=== PATIENT | male | born 1955 | race Caucasian/White ===

== ENCOUNTER 2018-09-10 06:04 | Day surgery (SDC) | payer OTHER ==
[2018-09-09 15:34] VITALS: BMI 34.2
[~2018-09-10 06:04] MED LIST: ceFAZolin SODIUM 1 GM VIAL IVPB ONE
[2018-09-10] MEDS ORDERED: MIDAZOLAM HCL 2 MG/2 ML SINGLE DOSE VIAL ONE (07:20)
[2018-09-10] MEDS ORDERED: SUCCINYLCHOLINE CHLORIDE 200 MG/10 ML VIAL ONE (07:20)
[2018-09-10] MEDS ORDERED: PROPOFOL 20 ML ONE ×4 (07:20)
[2018-09-10] MEDS ORDERED: LIDOCAINE HCL 1%, 10 MG/ML (20ML VIAL) ONE (07:25)
[2018-09-10] MEDS ORDERED: BUPIVACAINE HCL/PF 0.5% (5MG/ML) 10 ML VIAL ONE (07:26)
[2018-09-10] MEDS ORDERED: BUPIVACAINE HCL/PF (5 MG/ML) 30 ML VIAL IJ ONE ×3 (07:33→08:26)
[2018-09-10] MEDS ORDERED: LIDOCAINE HCL 1%, 10 MG/ML (50 mL VIAL) IJ ONE ×3 (07:33→08:26)
--- NOTE | 2018-09-10 08:15 | HP ---
[facility]ellite [facility] - Chief Complaint Chief Complaint: left wrist pain History of Present Illness: left wrist pain, lacerated tendon History Source: Patient Limitations to Obtaining History: No Limitations - Past Medical History Allergies/Adverse Reactions: Allergies Allergy/AdvReac Type Severity Reaction Status Date / Time No Known Allergies Allergy Verified 09/10/18 06:29 - Current Medications Current Medications: Home Medications Medication Instructions Recorded Canagliflozin/Metformin HCl 1 each PO BID #60 tablet 05/21/17 [Invokamet 150-1,000 mg Tablet] Verapamil HCl [Verapamil ER] 0.5 mg PO BID 12/27/17 Atorvastatin Ca [Lipitor] 40 mg PO HS #30 tablet 03/07/18 Lisinopril [Prinivil] 5 mg PO DAILY #30 tablet 03/07/18 Metoprolol Tartrate [Lopressor -] 50 mg PO TID #90 tablet 03/07/18 [place]-3 Acid Ethyl Esters [Lovaza 2 cap PO BID #120 cap 03/07/18 -] Ergocalciferol [Vitamin D2] 50,000 unit PO Q7D #4 capsule 05/26/18 Glipizide [Glucotrol Xl] 2.5 mg PO DAILY 07/31/18 Silver Sulfadiazine [Silvadene] 1 applic TP BID #20 cream..g. 08/20/18 Digoxin [Lanoxin -] 0.25 mg PO DAILY #30 tablet 08/25/18 Emtricitab/Rilpiviri/Tenof Ala 1 each PO DAILY #30 tablet 08/25/18 [Odefsey Tablet] Gabapentin 600 mg PO HS #60 capsule 08/25/18 Multivitamin,Ther and Minerals 1 each PO DAILY #30 tablet 08/25/18 [Vitamin and Minerals] Olopatadine HCl [Pataday] 1 drop OU DAILY #2.5 ml 08/25/18 Oxycodone HCl/Acetaminophen 1 each PO TID PRN #80 tablet MDD 3 08/25/18 [Percocet 10-325 mg Tablet] Rivaroxaban [Xarelto -] 20 mg PO DAILY #30 tablet 08/25/18 Satellite Physical Exam - Physical Examination Vital Signs: Vital Signs Period Temp Pulse Resp BP Sys/Terry Pulse Ox Last 24 Hr 97.5 F-97.5 F 61-61 20-20 114-114/63-63 97 General Appearance: Well Nourished ENT: Clear Lung: Clear to auscultation Heart: Regular rate & rhythm Breasts: Soft Abdomen: Soft Extremities: No edema Satellite Impression/Plan - Impression/Plan Impression: left wrist pain, lacerated tendon stump Operative Procedure: excision tendon stump, left wrist Date to be Performed: 09/10/18
[2018-09-10] MEDS ORDERED: ceFAZolin SODIUM 1 GM VIAL IVPB ONE (08:25)
[2018-09-10 09:09] VITALS: TEMP 97.6
--- NOTE | 2018-09-10 09:10 | OP ---
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
--- NOTE | 2018-09-10 09:57 | OP ---
DATE OF OPERATION: 09/10/2018 PREOPERATIVE DIAGNOSIS: Left wrist tendon laceration. POSTOPERATIVE DIAGNOSIS: Left wrist tendon laceration. PROCEDURE: Excision tendon, left wrist, and tenosynovectomy. DRAINS: None. COMPLICATIONS: None. SPECIMENS: Tendon and tenosynovium, left wrist. SURGEON: Shawn Kyle MD GRAVEL MACHINE OPERATOR: None. MEDICAL TERRITORY MANAGER: Gabriel Dale CRNA ANESTHESIA: MAC anesthesia, local injection of 10 mL of 0.5% Marcaine and 1% lidocaine mixed. BLOOD LOSS: None. BLOOD GIVEN: None. FLUID REPLACEMENT: 500 mL. INDICATIONS: This patient is a 62-year-old male who sustained an accidental self-induced table-saw injury to the left forearm and wrist. He lacerated the palmaris longus tendon. A large distal stump remained. It was mobile. It was constantly irritating the forearm. We indicated him for palmaris longus tendon stump excision and tenosynovectomy. DESCRIPTION OF PROCEDURE: He was brought to the operating room, peripheral IV placed and intravenous sedation was given. IV Ancef, 2 g, was given. MAC anesthesia was induced. The left upper extremity was prepped and draped in sterile fashion. A longitudinal incision was marked out over the distal palmaris longus stump. Then, 10 mL of 0.5% Marcaine with 1% Lidocaine mix was injected in and around the surgical incision. The entire case was done under 3.8 loupe magnification. The left upper extremity was then elevated, exsanguinated with an Esmarch bandage and the tourniquet inflated to 250 mmHg. The longitudinal incision was made with a No. 15 scalpel blade. Subcutaneous hemostasis was achieved with the bipolar cautery. Dissection was done with a Littler scissors. I was able to expose the distal palmaris longus tendon. I pulled on it, did provide the function of the palmaris longus to confirm that this was the correct tendon. The distal tendon stump was swollen, larger than usual with a moderate amount of surrounding synovitis/tenosynovitis. There was no proximal stump to repair it to. I pulled on the tendon a bit proximally. Then, using a fresh No. 15 scalpel blade, cut it at the level of the volar wrist flexion crease at a much smaller diameter. I also excised surrounding tenosynovium and passed this off the field as specimen. The area was copiously irrigated and washed out. I did not see any foreign material or any other abnormalities. Closure was done with 4-0 undyed Vicryl in the deep dermal layer. Final skin reapproximation was done with a running subcuticular 4-0 Biosyn stitch. This was then washed dry and covered with Steri-Strips, 4x4s, fluffs between the fingers, Webril and Coban. The tourniquet was taken down after a total tourniquet time of 15 minutes. There were no complications during the case. The patient tolerated the procedure well. SHAWN KYLE M.D. [id number]
[2018-09-10 10:15] VITALS: BP 120/80; PULSE 80
--- NOTE | 2018-09-11 16:17 | PATH ---
Surgical Pathology Report Patient Name: ASIM SHEARER Med. Rec. #: [id number] /Age/Gender: 1955 (Age: 62) / M Account: [id number] Location: [facility] SURGICAL Taken: 09/10/2018 Received: 09/10/2018 Reported: 09/11/2018 Physicians: Shawn Taylor M.D. Specimen(s) Received LEFT WRIST TENDON Clinical History Tendon rupture Final Diagnosis LEFT WRIST TENDON, EXCISION: PORTION OF DENSE FIBROCONNECTIVE TISSUE SHOWING FIBROSIS, DEGENERATIVE CHANGE, AND CHRONIC INFLAMMATION. Electronically Signed Jef Escoto M.D. Gross Description Received in formalin labeled "left wrist tendon," is a 3.5 x 0.8 x 0.4 cm howell portion of fibrous tissue, consistent with a portion of tendon. Dry Mill Worker sections are submitted in one cassette. DL/09/10/2018 saudi/09/10/2018
== END 2018-09-10 10:15 | disposition home or self-care (01) ==
LOC: JASU-SURG 06:04
PROVIDERS: ATTEND Orthopaedic Surgery
PROC: 0LB60ZZ Excision of Left Lower Arm and Wrist Tendon, Open Approach (ICD-10-PCS; 2018-09-10)
PROC: 0LB60ZZ Excision of Left Lower Arm and Wrist Tendon, Open Approach (ICD-10-PCS; principal; 2018-09-10 08:00)
DX: S66.822A Laceration of other specified muscles, fascia and tendons at wrist and hand level, left hand, initial encounter (principal); X58.XXXA Exposure to other specified factors, initial encounter; Y93.9 Activity, unspecified; Y92.9 Unspecified place or not applicable; Y99.9 Unspecified external cause status; M65.832 Other synovitis and tenosynovitis, left forearm
CPT/HCPCS: 82962; 88304-TC

== ENCOUNTER → 2019-01-27 | Outpatient (CLI) | payer OTHER | LOC: YHH 08:47 ==

== ENCOUNTER 2019-03-04 07:29 | Day surgery (SDC) | payer OTHER ==
[2019-03-04 07:47] VITALS: BMI 34.8
--- NOTE | 2019-03-04 08:13 | HP ---
[facility] - Chief Complaint Chief Complaint: left hand pain, numbness - Past Medical History Allergies/Adverse Reactions: Allergies Allergy/AdvReac Type Severity Reaction Status Date / Time No Known Allergies Allergy Verified 09/10/18 06:29 - Current Medications Current Medications: Home Medications Medication Instructions Recorded Canagliflozin/Metformin HCl 1 each PO BID #60 tablet 05/21/17 [Invokamet 150-1,000 mg Tablet] Atorvastatin Ca [Lipitor] 40 mg PO HS #30 tablet 03/07/18 Lisinopril [Prinivil] 5 mg PO DAILY #30 tablet 03/07/18 Metoprolol Tartrate [Lopressor -] 50 mg PO TID #90 tablet 03/07/18 [place]-3 Acid Ethyl Esters [Lovaza 2 cap PO BID #120 cap 03/07/18 -] Glipizide [Glucotrol Xl] 2.5 mg PO DAILY 07/31/18 Ergocalciferol [Vitamin D2] 50,000 unit PO Q7D #4 capsule 10/21/18 Albuterol 0.083% Nebulizer Mariaelena 1 neb NEB Q6H PRN #120 vial 01/26/19 [Ventolin 0.083% Nebulizer Soln -] Nebulizer and Compressor [Comp-Air 1 each ASDIR #1 each 01/27/19 Nebulizer System] Mirtazapine [Remeron -] 15 mg PO HS #30 tablet MDD 1 02/04/19 Digoxin [Lanoxin -] 0.25 mg PO DAILY #30 tablet 02/05/19 Emtricitab/Rilpiviri/Tenof Ala 1 each PO DAILY #30 tablet 02/05/19 [Odefsey Tablet] Olopatadine HCl [Pataday] 1 drop OU DAILY #2.5 ml 02/05/19 Rivaroxaban [Xarelto -] 20 mg PO DAILY #30 tablet 02/05/19 Oxycodone HCl/Acetaminophen 1 each PO TID PRN #75 tablet MDD 3 02/20/19 [Percocet 10-325 mg Tablet] Guaifenesin/D-Methorphan Hb 10 ml PO Q4H PRN #240 ml 02/27/19 [Diabetic Tussin Dm -] Loratadine [Claritin -] 10 mg PO DAILY PRN #30 tablet 02/27/19 Verapamil HCl ER [Calan Sr -] 180 mg PO BID #60 tablet.er 03/02/19 Satellite Physical Exam - Physical Examination Vital Signs: Vital Signs Period Temp Pulse Resp BP Sys/Terry Pulse Ox Last 24 Hr 97.4 F-97.4 F 93-93 20-20 144-144/88-88 95 General Appearance: Well Nourished, Well Developed, Alert & Oriented x3 ENT: Clear Lung: Normal air movement Heart: Regular rate & rhythm Extremities: Other (left hand- + tinels, + phalens, emg + cts) Neurological: Intact, Alert, Oriented Satellite Impression/Plan - Impression/Plan Impression: left cts Operative Procedure: left ctr Date to be Performed: 03/04/19
[2019-03-04] MEDS ORDERED: oxyCODONE HCL 5 MG TABLET PO PRN (09:40)
[2019-03-04] MEDS ORDERED: ONDANSETRON 4 MG/2 ML VIAL IVPUSH PRN (09:40)
[2019-03-04] MEDS ORDERED: LACTATED RINGERS SOLUTION 1,000 ML IV SCH (09:45)
[2019-03-04] MEDS ORDERED: BUPIVACAINE HCL/PF 0.5% (5 MG/ML) 30 ML VIAL IJ ONE ×3 (10:49→11:30)
[2019-03-04] MEDS ORDERED: LIDOCAINE HCL 1%, 10 MG/ML (20ML VIAL) ONE (10:49)
[2019-03-04] MEDS ORDERED: MIDAZOLAM HCL 2 MG/2 ML SINGLE DOSE VIAL ONE (10:54)
[2019-03-04] MEDS ORDERED: ceFAZolin SODIUM 1 GM VIAL IVPB ONE (11:21)
[2019-03-04] MEDS ORDERED: LIDOCAINE HCL 1%, 10 MG/ML (20ML VIAL) NR ONE ×3 (11:21→11:30)
--- NOTE | 2019-03-04 12:02 | OP ---
Operative Note - Note: Operative Date: 03/04/19 Pre-Operative Diagnosis: left CTS Operation: left CTR, tenosynovectomy Post-Operative Diagnosis: Same as Pre-op Surgeon: Shawn Taylor Anesthesiologist/MANAGER EXCHANGE: Alena Nicole Anesthesia: Local, MAC Specimens Removed: tenosynovium Estimated Blood Loss (mls): 0 Drains, Volume Out (mls): 0 Blood Volume Replaced (mls): 0 Fluid Volume Replaced (mls): 500 Operative Report Dictated: Yes
[2019-03-04] MEDS ORDERED: PROPOFOL 20 ML ONE ×3 (13:31)
[2019-03-04 14:12] VITALS: PULSE 86; TEMP 97.8
--- NOTE | 2019-03-04 16:49 | SPEC ---
DATE OF OPERATION: 03/04/2019 PREOPERATIVE DIAGNOSIS: Left carpal tunnel syndrome and tenosynovitis. POSTOPERATIVE DIAGNOSIS: Left carpal tunnel syndrome and tenosynovitis. OPERATION: Left carpal tunnel release and tenosynovectomy. SURGEON: Shawn Taylor M.D. ASSISTANTS: , PATROL INSPECTOR ANESTHESIA: MAC, local injection of 15 mL of 0.5% Marcaine and 1% lidocaine mix. COMPLICATIONS: None. BLOOD LOSS: None. BLOOD GIVEN: None. FLUID REPLACEMENT: 500 mL of Plasmalyte. DRAINS: None. SPECIMENS: Tenosynovium, left wrist. INDICATIONS: Patient is a 63-year-old male with preoperative diagnosis of a significant trauma and laceration to the volar aspect of his left forearm. Previously I did surgery to the volar aspect of the left wrist where I excised the distal inflamed stump of the palmaris longus tendon. The patient has left carpal tunnel syndrome, in my opinion from the trauma to the median nerve during the injury and likely also secondary to some scar tissue that formed subsequent to the injury to the palmaris longus and possibly to the previous surgery. The patient understands this. All questions and concerns were addressed. He understands he may not get complete relief of his symptoms, and he elects to go forward with the carpal tunnel release. After understanding the potential risks, complications, alternatives and benefits of surgery versus nonsurgical treatment, the patient elected to undergo this procedure. DESCRIPTION OF PROCEDURE: The patient was brought to the operating room, peripheral IV placed and intravenous sedation was given. One gram of intravenous Ancef was given. MAC anesthesia was induced. A tourniquet was applied to the left upper arm and the left upper extremity was prepped and draped in sterile fashion. The entire case was done under 3.8 loupe magnification. A marking pen was utilized to lynette out a longitudinal incision in an already existing skin crease. Twenty mL of 0.5% Marcaine mixed with 1% Lidocaine was injected in and around the surgical incision. The left upper extremity was elevated, exsanguinated with an Esmarch bandage and the tourniquet inflated to 250 mmHg. A No. 15 scalpel blade was utilized to cut down through the skin. Subcutaneous hemostasis was achieved with the bipolar cautery. Dissection was done through the superficial palmar fascia. Self-retaining retractors were placed into the wound. Under direct visualization, the transverse carpal ligament was transected with a No. 15 scalpel blade, exposing the median nerve and the contents of the carpal tunnel. The distal and proximal extents of the release were completed with a Littler scissor and checked with irrigation and my small finger. They were seen to be complete. Limited dissection was done on the radial side of the median nerve and more extensive dissection was done on the ulnar side of the median nerve. The patients nerve was seen to be quite compressed by epineurium and therefore a limited epineurotomy was performed. A Ragnell retractor was used to gently retract the median nerve in a radial direction. The patient had a lot of tenosynovitis and therefore a tenosynovectomy was performed off all 9 flexor tendons. This was passed off the field as tenosynovium left wrist. I did a complete release of the distal forearm fascia. There were some very tight transverse bands in the area of the previous palmaris longus laceration and previous excision of tendon surgery. I was able to release these with the Littler scissors, and it made a big difference after the release compared to before as far as compression on the more proximal aspect of the median nerve. The floor of the carpal tunnel was checked. There were no abnormal masses or ganglion cysts. The area was copiously irrigated and washed out and closure begun. Undyed 4-0 Vicryl was used to close the deep dermal layer. Final skin reapproximation was done with horizontal mattress 4-0 nylon sutures. The area was then washed and dried, covered with Xeroform, 4 x 4s, fluffs between the fingers, Webril and a 4-inch plaster roll was utilized to make a volar splint, which was then wrapped with Angelo and Coban. Total operative time was 25 minutes. The tourniquet was taken down after a total tourniquet time of 25 minutes. There were no complications during the case. The patient tolerated the procedure well and was brought to the ambulatory recovery room in stable condition. Kristyn [id number]
[2019-03-04 17:53] VITALS: BP 117/80
--- NOTE | 2019-03-06 11:42 | PATH ---
Surgical Pathology Report Patient Name: ASIM SHEARER [facility]. Rec. #: [id number] /Age/Gender: 1955 (Age: 63) / M Account: [id number] Location: [facility] SURGICAL Taken: 03/04/2019 Received: 03/04/2019 Reported: 03/06/2019 Physicians: Shawn Taylor M.D. Specimen(s) Received TENOSYNOVIUM Clinical History Carpal tunnel syndrome left hand Final Diagnosis TENOSYNOVIUM, EXCISION: FRAGMENTS SKELETAL MUSCLE AND TENOSYNOVIAL TISSUE WITH FOCAL FIBROSIS. Electronically Signed Jef Escoto M.D. Gross Description Received in formalin, labeled "tenosynovium" are multiple howell, irregular portions of soft tissue measuring 2.5 x 1.5 x 0.2 cm in aggregate. The specimen is submitted in toto in one cassette. RONNY/03/05/2019 lianna/03/05/2019
== END 2019-03-04 13:00 | disposition home or self-care (01) ==
LOC: JASU-SURG 07:29
PROVIDERS: ATTEND Orthopaedic Surgery
PROC: 0LB80ZZ Excision of Left Hand Tendon, Open Approach (ICD-10-PCS; 2019-03-04)
PROC: 01N50ZZ Release Median Nerve, Open Approach (ICD-10-PCS; principal; 2019-03-04 09:30)
DX: G56.02 Carpal tunnel syndrome, left upper limb (principal); M65.842 Other synovitis and tenosynovitis, left hand; M65.9 Synovitis and tenosynovitis, unspecified
CPT/HCPCS: 82962; 88304-TC

== ENCOUNTER 2020-07-11 16:22 | Emergency (ER) | payer OTHER ==
[2020-07-11 16:51] VITALS: BMI 34.4
[2020-07-11] MEDS ORDERED: BAMLANIVIMAB 700 MG in SODIUM CHLORIDE 180 ML IVPB ONE (16:57)
[2020-07-11] MEDS ORDERED: BAMLANIVIMAB 700 MG in SODIUM CHLORIDE 250 ML IVPB ONE (17:45)
[2020-07-11 18:32] VITALS: BP 114/73; PULSE 85; TEMP 99.4
== END 2020-07-11 20:38 | disposition home or self-care (01) ==
LOC: JER 16:22 → JCOVINFU 16:22 → JER 20:38
DX: U07.1 COVID-19 (principal)
CPT/HCPCS: 99284-25; M0239; Q0239

== ENCOUNTER 2022-01-20 23:39 | Observation (INO) | payer OTHER ==
[2022-01-21] MEDS ORDERED: ALBUTEROL SO4 0.083% IH SOL 2.5 MG/3 ML VIAL.NEB. NEB ONE ×2 (01:05→01:14)
[2022-01-21 01:22] LABS: BASO % 0.5 % (0-2.0); EOS % 1.2 % (0-4.5); HEMATOCRIT 41.1 % (35.4-49); HEMOGLOBIN 14.3 GM/dL (11.7-16.9); LYMPH % 50.2 % (8-40); MCH 34.9 pg (25.7-33.7); MCHC 34.8 g/dl (32.0-35.9); MEAN CELL VOLUME 100.3 fl (80-96); MEAN PLT VOLUME 7.8 fl (7.5-11.1); MONO % 8.7 % (3.8-10.2); NEUT % 39.4 % (42.8-82.8); PLATELET COUNT 175 10^3/uL (134-434); RDW 13.3 % (11.9-15.9)
[2022-01-21 01:26] LABS: INR 1.44 (0.83-1.09); PROTHROMBIN TIME (PATIENT) 16.6 SEC (9.7-13.0)
[2022-01-21 01:28] LABS: ACTIVATED PTT 39.1 SECONDS (25.2-36.5)
[2022-01-21 01:39] LABS: ALBUMIN 3.8 g/dl (3.4-5.0); BLOOD UREA NITROGEN 42.4 mg/dL (7-18); CALCIUM 9.3 mg/dL (8.5-10.1); MAGNESIUM 1.8 mg/dL (1.8-2.4)
[2022-01-21 01:42] LABS: CREATININE 1.3 mg/dL (0.55-1.3)
[2022-01-21 01:44] LABS: BILIRUBIN,TOTAL 0.8 mg/dL (0.2-1); TOT PROT 7.6 g/dl (6.4-8.2)
[2022-01-21 07:26] VITALS: BMI 34.7
[2022-01-21] MEDS ORDERED: METOPROLOL TARTRATE 5 MG/5 ML VIAL ONE (07:50)
[2022-01-21] MEDS ORDERED: DIGOXIN 0.25 MG TABLET PO SCH (10:00)
[2022-01-21] MEDS: METOPROLOL TARTRATE 25 MG TABLET (FP) PO SCH ×4 (10:02→23:29)
[2022-01-21] MEDS: EMTRICITAB/RILPIVIRINE/TENOFOV 1 EACH TABLET PO SCH (10:03)
[2022-01-21 11:03] LABS: URINE APPEARANCE CLEAR; URINE BILIRUBIN NEGATIVE (NEGATIVE); URINE COLOR YELLOW; URINE GLUCOSE (UA) 2+ (NEGATIVE); URINE KETONE NEGATIVE (NEGATIVE); URINE LEUK ESTERASE NEGATIVE (NEGATIVE); URINE NITRITE NEGATIVE (NEGATIVE); URINE PROTEIN TRACE (NEGATIVE); URINE UROBILINOGEN 0.2 mg/dL (0.2-1.0)
[2022-01-21] MEDS: INSULIN SLIDING SCALE (NOVOLOG) 1 VIAL SQ SCH ×2 (11:59→17:22)
[2022-01-21] MEDS: oxyCODONE HCL 5 MG TABLET PO PRN ×2 (12:45→20:17)
[2022-01-21] MEDS: RIVAROXABAN 20 MG TABLET PO SCH (17:22)
[2022-01-21] MEDS ORDERED: METOPROLOL TARTRATE 5 MG/5 ML VIAL IVPUSH ONE (18:45)
[2022-01-21 20:12] LABS: N-TERMINAL BNP 385.9 pg/ml (5-125)
[2022-01-21] MEDS ORDERED: INSULIN SLIDING SCALE (NOVOLOG) 1 VIAL SQ SCH (22:00)
[2022-01-21] MEDS: ATORVASTATIN CA 40 MG TABLET (FP) PO SCH (23:29)
[2022-01-21] MEDS: traZODone HCL 50 MG TABLET (FP) PO SCH (23:46)
[2022-01-21] MEDS: MIRTAZAPINE 15 MG TABLET (FP) PO SCH (23:46)
[2022-01-22] MEDS: METOPROLOL TARTRATE 25 MG TABLET (FP) PO SCH ×4 (06:07→23:19)
[2022-01-22] MEDS: INSULIN SLIDING SCALE (NOVOLOG) 1 VIAL SQ SCH ×3 (06:07→16:25)
[2022-01-22] MEDS ORDERED: EMTRICITAB/RILPIVIRINE/TENOFOV 1 EACH TABLET PO SCH (08:00)
[2022-01-22] MEDS: EMTRICITAB/RILPIVIRINE/TENOFOV 1 EACH TABLET PO SCH (08:18)
[2022-01-22 10:33] LABS: HEMOGLOBIN 14.4 GM/dL (11.7-16.9); MCH 34.7 pg (25.7-33.7); MCHC 34.3 g/dl (32.0-35.9); MEAN CELL VOLUME 100.9 fl (80-96); MEAN PLT VOLUME 8.1 fl (7.5-11.1); PLATELET COUNT 155 10^3/uL (134-434); RBC 4.16 M/mm3 (4.00-5.60); RDW 13.5 % (11.9-15.9); WHITE BLOOD COUNT 5.2 K/mm3 (4.0-10.0)
[2022-01-22 10:55] LABS: ALBUMIN 3.7 g/dl (3.4-5.0); CALCIUM 8.9 mg/dL (8.5-10.1)
[2022-01-22 10:56] LABS: MAGNESIUM 1.7 mg/dL (1.8-2.4)
[2022-01-22 10:58] LABS: CREATININE 1.1 mg/dL (0.55-1.3)
[2022-01-22 11:01] LABS: TOT PROT 7.3 g/dl (6.4-8.2)
[2022-01-22 11:05] LABS: N-TERMINAL BNP 1173.8 pg/ml (5-125)
[2022-01-22] MEDS: oxyCODONE HCL 5 MG TABLET PO PRN ×2 (11:54→20:34)
[2022-01-22] MEDS: RIVAROXABAN 20 MG TABLET PO SCH (17:38)
[2022-01-22] MEDS ORDERED: MAGNESIUM SULF 50% (8.12 MEQ/2 ML-1 GM VIAL) IVPB ONE (17:58)
[2022-01-22] MEDS ORDERED: METOPROLOL TARTRATE 5 MG/5 ML VIAL IVPUSH ONE (20:49)
[2022-01-22] MEDS: MIRTAZAPINE 15 MG TABLET (FP) PO SCH (21:13)
[2022-01-22] MEDS: traZODone HCL 50 MG TABLET (FP) PO SCH (21:13)
[2022-01-22] MEDS: ATORVASTATIN CA 40 MG TABLET (FP) PO SCH (21:13)
[2022-01-23] MEDS: INSULIN SLIDING SCALE (NOVOLOG) 1 VIAL SQ SCH ×3 (06:35→16:44)
[2022-01-23] MEDS: METOPROLOL TARTRATE 25 MG TABLET (FP) PO SCH ×2 (06:36→11:27)
[2022-01-23] MEDS: oxyCODONE HCL 5 MG TABLET PO PRN ×2 (06:38→17:48)
[2022-01-23 07:53] LABS: BASO % 1.1 % (0-2.0); EOS % 2.4 % (0-4.5); HEMATOCRIT 41.3 % (35.4-49); HEMOGLOBIN 14.2 GM/dL (11.7-16.9); LYMPH % 43.6 % (8-40); MCH 34.4 pg (25.7-33.7); MCHC 34.4 g/dl (32.0-35.9); MEAN CELL VOLUME 100.2 fl (80-96); MEAN PLT VOLUME 7.9 fl (7.5-11.1); MONO % 9.3 % (3.8-10.2); NEUT % 43.6 % (42.8-82.8); PLATELET COUNT 151 10^3/uL (134-434); RBC 4.12 M/mm3 (4.00-5.60); RDW 13.3 % (11.9-15.9); WHITE BLOOD COUNT 4.5 K/mm3 (4.0-10.0)
[2022-01-23 08:12] LABS: ALBUMIN 3.6 g/dl (3.4-5.0); BLOOD UREA NITROGEN 28.3 mg/dL (7-18); CALCIUM 8.9 mg/dL (8.5-10.1)
[2022-01-23 08:16] LABS: CREATININE 0.9 mg/dL (0.55-1.3)
[2022-01-23 08:17] LABS: BILIRUBIN,TOTAL 1.2 mg/dL (0.2-1)
[2022-01-23] MEDS: EMTRICITAB/RILPIVIRINE/TENOFOV 1 EACH TABLET PO SCH (09:13)
[2022-01-23] MEDS ORDERED: DIGOXIN 0.125 MG TABLET PO SCH (10:00)
[2022-01-23] MEDS: LISINOPRIL 5 MG TABLET PO SCH (17:42)
[2022-01-23] MEDS: RIVAROXABAN 20 MG TABLET PO SCH (17:44)
[2022-01-23 20:50] VITALS: RESP 20
[2022-01-23] MEDS ORDERED: oxyCODONE HCL 5 MG TABLET PO ONE (21:14)
[2022-01-23] MEDS: traZODone HCL 50 MG TABLET (FP) PO SCH (22:49)
[2022-01-23] MEDS: MIRTAZAPINE 15 MG TABLET (FP) PO SCH (22:49)
[2022-01-24] MEDS: oxyCODONE HCL 5 MG TABLET PO PRN (02:33)
[2022-01-24] MEDS: INSULIN SLIDING SCALE (NOVOLOG) 1 VIAL SQ SCH ×3 (06:42→16:50)
[2022-01-24 08:30] LABS: BASO % 1.1 % (0-2.0); EOS % 2.3 % (0-4.5); HEMATOCRIT 40.9 % (35.4-49); LYMPH % 46.4 % (8-40); MCH 34.5 pg (25.7-33.7); MCHC 34.4 g/dl (32.0-35.9); MEAN CELL VOLUME 100.3 fl (80-96); MEAN PLT VOLUME 7.8 fl (7.5-11.1); MONO % 7.9 % (3.8-10.2); NEUT % 42.3 % (42.8-82.8); PLATELET COUNT 154 10^3/uL (134-434); RBC 4.07 M/mm3 (4.00-5.60); RDW 13.2 % (11.9-15.9); WHITE BLOOD COUNT 4.9 K/mm3 (4.0-10.0)
[2022-01-24] MEDS: LISINOPRIL 5 MG TABLET PO SCH (09:00)
[2022-01-24] MEDS: EMTRICITAB/RILPIVIRINE/TENOFOV 1 EACH TABLET PO SCH (09:01)
[2022-01-24 09:16] LABS: BILIRUBIN,TOTAL 1.3 mg/dL (0.2-1); TOT PROT 6.9 g/dl (6.4-8.2)
[2022-01-24 09:19] LABS: ALBUMIN 3.5 g/dl (3.4-5.0); CALCIUM 8.8 mg/dL (8.5-10.1)
[2022-01-24 09:20] LABS: MAGNESIUM 1.7 mg/dL (1.8-2.4)
[2022-01-24 09:22] LABS: BLOOD UREA NITROGEN 22.8 mg/dL (7-18); CREATININE 0.9 mg/dL (0.55-1.3); PHOSPHOROUS 2.6 mg/dL (2.5-4.9)
[2022-01-24 09:51] VITALS: PULSE 89
[2022-01-24] MEDS ORDERED: PATIENT'S OWN MEDICATION (NON-FORMULARY) (Oxycodone Hcl/Acetaminophen [Endocet 10-325 Mg T PO PRN (10:25)
[2022-01-24] MEDS ORDERED: oxyCODONE HCL 5 MG TABLET PO PRN (11:10)
[2022-01-24] MEDS ORDERED: ACETAMINOPHEN 325 MG TABLET (FP) PO PRN (11:11)
[2022-01-24 15:34] VITALS: BP 150/88; TEMP 98.7
[2022-01-24] MEDS: RIVAROXABAN 20 MG TABLET PO SCH (17:04)
== END 2022-01-24 18:00 | disposition home or self-care (01) ==
LOC: JER 23:39 → JERBED 01-21 04:13 → J4S 01-21 06:06
PROVIDERS: ADMIT Internal Medicine; ATTEND Internal Medicine
PROC: 3E0F7GC Introduction of Other Therapeutic Substance into Respiratory Tract, Via Natural or Artificial Opening (ICD-10-PCS; principal; 2022-01-21)
PROC: 3E013VG Introduction of Insulin into Subcutaneous Tissue, Percutaneous Approach (ICD-10-PCS; 2022-01-21)
PROC: 3E033GC Introduction of Other Therapeutic Substance into Peripheral Vein, Percutaneous Approach (ICD-10-PCS; 2022-01-21)
DX: I25.10 Atherosclerotic heart disease of native coronary artery without angina pectoris (principal); E11.9 Type 2 diabetes mellitus without complications; I48.91 Unspecified atrial fibrillation; E66.8 Other obesity; Z68.34 Body mass index [BMI] 34.0-34.9, adult; B20 Human immunodeficiency virus [HIV] disease; G47.33 Obstructive sleep apnea (adult) (pediatric); Z79.01 Long term (current) use of anticoagulants; W18.39XA Other fall on same level, initial encounter; Y93.89 Activity, other specified; Y92.091 Bathroom in other non-institutional residence as the place of occurrence of the external cause
CPT/HCPCS: 36415; 70450-TC; 71045-TC-FY; 73110-TC-LT-FY; 73130-TC-LT-FY; 74177-TC; 80053; 80061; 80162; 81003; 82962; 83036; 83735; 83880; 84100; 84439; 84443; 84484; 85025; 85027; 85610; 85730; 87086; 93005; 93010; 93306-TC; 94640; 96372; 96374; 96375; 96376; 99285-25; C9803-CS; G0378; Q9967; U0003; U0005

== ENCOUNTER 2022-07-09 11:41 | Emergency (ER) | payer OTHER ==
[2022-07-09 12:14] VITALS: RESP 18; BMI 35.2
[2022-07-09 16:21] VITALS: BP 114/82; PULSE 69; TEMP 97.7
== END 2022-07-09 16:21 | disposition home or self-care (01) ==
LOC: JERFT 11:41
DX: S49.91XA Unspecified injury of right shoulder and upper arm, initial encounter (principal); S09.90XA Unspecified injury of head, initial encounter; W22.09XA Striking against other stationary object, initial encounter; W01.198A Fall on same level from slipping, tripping and stumbling with subsequent striking against other object, initial encounter
CPT/HCPCS: 70450-TC; 73030-TC-RT-FY; 99284-25